=== PATIENT | female | born 1955 | race African-American/Black ===

== ENCOUNTER 2018-06-15 06:09 | Day surgery (SDC) | payer BC, OTHER ==
[2018-06-14 16:32] VITALS: BMI 37.8
[~2018-06-15 06:09] MED LIST: DEXAMETHASONE SOD PHOSPHATE 4 MG/1 ML VIAL IVPUSH ONE
[2018-06-15] MEDS ORDERED: DEXAMETHASONE SOD PHOSPHATE 4 MG/1 ML VIAL ONE ×3 (07:15→09:13)
[2018-06-15] MEDS ORDERED: BUPIVACAINE HCL/PF 0.5% (5MG/ML) 10 ML VIAL ONE (07:16)
[2018-06-15] MEDS ORDERED: LIDOCAINE HCL 1%, 10 MG/ML (20ML VIAL) ONE (07:16)
[2018-06-15] MEDS ORDERED: MIDAZOLAM HCL 2 MG/2 ML SINGLE DOSE VIAL ONE (08:08)
[2018-06-15] MEDS ORDERED: PROPOFOL 20 ML ONE ×2 (08:14→08:39)
[2018-06-15] MEDS ORDERED: ceFAZolin SODIUM 1 GM VIAL IVPB ONE (08:18)
[2018-06-15] MEDS ORDERED: LIDOCAINE HCL 1%, 10 MG/ML (20ML VIAL) INF ONE (08:32)
[2018-06-15] MEDS ORDERED: BUPIVACAINE HCL/PF (5 MG/ML) 30 ML VIAL IJ ONE (08:32)
[2018-06-15] MEDS ORDERED: BACITRACIN 50,000 UNITS VIAL TP ONE (09:05)
[2018-06-15] MEDS ORDERED: LIDOCAINE HCL/PF 2% SDV 5ML VIAL ONE (09:13)
[2018-06-15] MEDS ORDERED: KETOROLAC TROMETHAMINE 30 MG/1 ML VIAL ONE (09:13)
[2018-06-15] MEDS ORDERED: ceFAZolin SODIUM 1 GM VIAL ONE (09:13)
[2018-06-15] MEDS ORDERED: DEXAMETHASONE SOD PHOSPHATE 4 MG/1 ML VIAL IVPUSH ONE (09:21)
--- NOTE | 2018-06-15 09:31 | OP ---
Operative Note - Note: Operative Date: 06/15/18 Pre-Operative Diagnosis: hallux valgus left Operation: modified plantarflexory maria luisa bunionectomy 2.4mmx16 osteomed partially threaded screw fixation Findings: hypertrophic bone and soft tissue Implants: [id number] partially threaded osteomed screw Surgeon: Muna Jackman Crane Follower: Ben Harrison Anesthesia: Local, MAC Estimated Blood Loss (mls): 5 Operative Report Dictated: Yes
[2018-06-15] MEDS ORDERED: ONDANSETRON 4 MG/2 ML VIAL IVPUSH PRN (09:37)
[2018-06-15] MEDS ORDERED: LACTATED RINGERS SOLUTION 1,000 ML IV SCH (09:45)
[2018-06-15 10:28] VITALS: TEMP 98.2
[2018-06-15 11:42] VITALS: BP 121/76; PULSE 58
--- NOTE | 2018-06-15 17:32 | OP ---
DATE OF OPERATION: 06/15/2018 DATE OF DICTATION: 06/15/2018 PREOPERATIVE DIAGNOSIS: Left bunion pain. POSTOPERATIVE DIAGNOSIS: Left bunion pain. PROCEDURE PERFORMED: Jaskaran bunionectomy, left foot. SURGEON: Muna Jackman DPM GAGE DESIGNER: Dr. Reynolds ANESTHESIA: Local with IV sedation. HEMOSTASIS: Pneumatic ankle tourniquet, left ankle. ESTIMATED BLOOD LOSS: 15 mL. DESCRIPTION OF PROCEDURE: The patient was brought to the operating room and placed supine on the operating room table. A pneumatic ankle tourniquet was then placed on the patient's left ankle. Following IV sedation, local anesthesia was obtained utilizing 20 mL of a 1:1 mixture of 1% lidocaine plain and 0.5% Marcaine plain. The foot was then scrubbed, prepped and draped in the usual aseptic manner. An Esmarch bandage was then utilized to exsanguinate the patient's left foot and the tourniquet was inflated. Attention was then directed to the dorsal aspect of the 1st metatarsal head of the left foot, where a linear longitudinal incision was made medial and parallel to the tendon of the extensor hallucis longus. The incision was deepened through the subcutaneous tissue to the capsular level using sharp and blunt dissection. Care was taken to identify and retract all vital neural and vascular structures. All bleeders were ligated and cauterized as necessary. At this time, an inverted L-type capsulotomy was performed over the dorsal aspect of the 1st metatarsophalangeal joint. The periosteal and capsular structures were then carefully dissected free and reflected medially and laterally, thus exposing the head of the 1st metatarsal. Utilizing a sagittal saw, the dorsal and medial prominences were resected and passed from the operative field. Attention was then directed to the head of the 1st metatarsal where the medial surface of the foot to visualize it procedure, a [id number] V-type osteotomy was then created utilizing a sagittal bone saw, with the apex pointing distally and with the dorsal arm slightly longer than the plantar arm to accommodate fixation. The capital fragment was then shifted laterally into an improved position and was impacted on the head of the metatarsal shaft. A 0.045-inch K-wire was then driven across the osteotomy to provide fixation, and mm screw fixation was inserted across the osteotomy site, providing excellent compression and fixation. The initial K-wire fixation was then removed. The remaining bone shelf, as well as all rough edges of bone, was then resected and smoothed using power equipment, and the bunion deformity was noted to be improved. The operative site was then flushed with copious amounts of sterile saline, and the periosteal and capsular structures were reapproximated using 3-0 Vicryl. The subcutaneous tissue was closed with 4-0 Vicryl, and the skin edges were coapted using 5-0 Vicryl in a subcuticular suture stitch. Upon completion of the procedure, a total of 8 mL of an 8:2 mixture of 0.5% Marcaine and dexamethasone was infiltrated around the surgical site. The incision was dressed with Betadine-soaked Adaptic, covered with a sterile compressive dressing, 4 x 4, gauze, Shmuel, and Sam. The tourniquet was then deflated and immediate hyperemia returned to all digits. The patient tolerated the procedure well and was transferred to the recovery room with all vital signs stable and neurovascular status intact to the left foot. WINNIE Vega/[id number]
--- NOTE | 2018-06-16 17:06 | PATH ---
Surgical Pathology Report Patient Name: LONI GILMAN [facility]. Rec. #: [id number] /Age/Gender: 1955 (Age: 63) / F Account: [id number] Location: [facility] SURGICAL Taken: 06/15/2018 Received: 06/15/2018 Reported: 06/16/2018 Physicians: WINNIE Tapia DPM Specimen(s) Received 1ST METATARSAL BONE AND TISSUE LEFT FOOT Clinical History Hallux valgus Final Diagnosis FOOT, LEFT, FIRST METATARSAL BONE AND TISSUE, BUNIONECTOMY: BONE WITH DEGENERATIVE CHANGES AND DENSE FIBROCONNECTIVE TISSUE. Electronically Signed Lilliam Orozco M.D. Gross Description Received in formalin labeled "left foot first metatarsal bone and tissue," is a 2.5 x 1.8 x 0.3 cm aggregate of multiple fragments of bone and soft tissue. Therapist Physical sections are submitted in one cassette, following decalcification. /06/15/2018 saudi06/15/2018
== END 2018-06-15 12:59 | disposition home or self-care (01) ==
LOC: JASU-SURG 06:09
PROVIDERS: ATTEND Podiatrist Foot Surgery
PROC: 0QSP04Z Reposition Left Metatarsal with Internal Fixation Device, Open Approach (ICD-10-PCS; principal; 2018-06-15 08:00)
DX: M21.612 Bunion of left foot (principal)
CPT/HCPCS: 73630-TC-LT; 82962; 88304-TC; 88311-TC; 94760